=== PATIENT | male | born 1990 | race Asian ===

== ENCOUNTER 2017-10-29 17:20 | Emergency (ER) | payer MEDICAID ==
[~2017-10-29] VITALS: Ht 170.2 cm; Wt 71.2 kg
[2017-10-29 17:29] VITALS: Ht 170.2 cm; Wt 71.2 kg
[2017-10-29 18:18] VITALS: BP 134/63
== END 2017-10-29 18:18 | disposition home or self-care (01) ==
LOC: ED 17:20
DX: S81.832A Puncture wound without foreign body, left lower leg, initial encounter (principal); X58.XXXA Exposure to other specified factors, initial encounter; Y93.89 Activity, other specified; Y92.89 Other specified places as the place of occurrence of the external cause; Y99.8 Other external cause status
CPT/HCPCS: 90715; Q0092